=== PATIENT | female | born 1955 | race Caucasian/White ===

== ENCOUNTER 2017-03-30 09:00 | Outpatient (CLI) | payer OTHER, SELFPAY | END 2017-03-30 09:53 | disposition home or self-care (01) | PROVIDERS: Visit Provider Internal Medicine | DX: C50.911 Malignant neoplasm of unspecified site of right female breast (principal) | CPT/HCPCS: 96365; J3489 ==

== ENCOUNTER → 2017-04-21 09:53 | Outpatient (CLI) | payer OTHER, SELFPAY ==
[2017-04-21 10:12] LABS: Basophils % 0.9 % (0.1-2.0); Eosinophils # 0.4 K/mm3 (0.0-0.4); Eosinophils % 9.1 % (0.1-12.0); Hematocrit 37.9 % (37.0-47.0); Hemoglobin 12.3 g/dL (12.2-16.2); Lymphocytes # 1.5 K/mm3 (0.7-4.5); Lymphocytes % 33.1 K/mm3 (10-50); Mean Corpuscular HGB Conc 32.3 g/dL (31.8-35.4); Mean Corpuscular Volume 92.9 fl (81-99); Mean Platelet Volume 8.1 fl (7.4-10.4); Monocytes # 0.1 K/mm3 (0.1-1.0); Monocytes % 2.3 % (1.7-9.3); Neutrophils # 2.5 K/mm3 (1.8-7.8); Neutrophils % 54.6 % (37.0-80.0); Platelet Count 334 K/mm3 (142-424); Red Blood Count 4.08 M/mm3 (4.20-5.40); Red Cell Distribution Width 14.4 % (11.5-17.5); White Blood Count 4.5 K/mm3 (4.8-10.8)
[2017-04-21 13:03] LABS: Alanine Aminotransferase 25 U/L (12-78); Albumin/Globulin Ratio 1.1 (1.1-1.8); Alkaline Phosphatase 75 U/L (46-116); Anion Gap 13.1 mEq/L (5-15); Aspartate Amino Transferase 21 U/L (15-37); Bilirubin,Total 0.4 mg/dL (0.2-1.0); Blood Urea Nitrogen 18 mg/dL (7-18); Carbon Dioxide 31 mmol/L (21.0-32.0); Chloride 104 mmol/L (98-107); Creatinine,Serum 1.01 mg/dL (0.55-1.02); Estimated Glomerular Filt Rate 56 ml/min (>60); GFR (African American) 68 ML/MIN (>60); Globulin 3.6 gm/dl (1.3-3.2); Glucose 143 mg/dL (74-106); Potassium 5.1 mmoL/L (3.5-5.1); Sodium 143 mmol/L (136-145); Total Protein,Serum 7.6 gm/dL (6.4-8.2)
== END ==
PROVIDERS: PCP Internal Medicine; Visit Provider Internal Medicine
DX: C50.911 Malignant neoplasm of unspecified site of right female breast (principal)
CPT/HCPCS: 36415; 80053; 85025

== ENCOUNTER → 2017-05-07 09:16 | Outpatient (CLI) | payer OTHER, SELFPAY ==
--- NOTE | 2017-05-07 09:20 | XR_ITS ---
XR clavicle RT CLINICAL INDICATION: Follow-up clavicle fracture ITS.REASON: right clavicle fx ORDERING PHYSICIAN: Aren Perez MD PATIENT AGE: 61 years COMPARISON: 03/11/2017 FINDINGS: There is a pathologic fracture once again noted involving the distal shaft of the clavicle with further bony destruction than when compared to the previous exam. Vertical fracture line once again noted at this area. There is some sclerosis about the fracture site. No significant displacement. IMPRESSION: 1. Pathological fracture of the distal clavicle once again noted with some increasing sclerosis about the fracture site. Fracture line is still visible. 2. Increasing lucency involving the mid and distal shaft of the clavicle consistent with progression of the lytic lesion
== END ==
PROVIDERS: PCP Emergency Medicine; Visit Provider Orthopaedic Surgery
DX: M84.411D Pathological fracture, right shoulder, subsequent encounter for fracture with routine healing (principal)
CPT/HCPCS: 73000

== ENCOUNTER → 2017-05-26 10:24 | Outpatient (CLI) | payer OTHER, SELFPAY ==
[2017-05-26 10:55] LABS: Basophils # 0.1 K/mm3 (0-0.2); Eosinophils # 0.5 K/mm3 (0.0-0.4); Eosinophils % 7.8 % (0.1-12.0); Hematocrit 37.8 % (37.0-47.0); Hemoglobin 12.2 g/dL (12.2-16.2); Lymphocytes % 28.5 K/mm3 (10-50); Mean Corpuscular HGB Conc 32.4 g/dL (31.8-35.4); Mean Corpuscular Hemoglobin 29.1 pg (27.0-31.2); Mean Corpuscular Volume 89.8 fl (81-99); Mean Platelet Volume 7.8 fl (7.4-10.4); Monocytes # 0.3 K/mm3 (0.1-1.0); Monocytes % 4.8 % (1.7-9.3); Neutrophils % 57.9 % (37.0-80.0); Platelet Count 315 K/mm3 (142-424); Red Blood Count 4.21 M/mm3 (4.20-5.40); Red Cell Distribution Width 14.5 % (11.5-17.5); White Blood Count 6.9 K/mm3 (4.8-10.8)
[2017-05-26 13:01] LABS: Alanine Aminotransferase 33 U/L (12-78); Albumin Level 3.8 gm/dL (3.4-5.0); Alkaline Phosphatase 72 U/L (46-116); Anion Gap 13.6 mEq/L (5-15); Aspartate Amino Transferase 22 U/L (15-37); Bilirubin,Total 0.4 mg/dL (0.2-1.0); Blood Urea Nitrogen 16 mg/dL (7-18); Calcium 9.5 mg/dL (8.5-10.1); Carbon Dioxide 28 mmol/L (21.0-32.0); Chloride 103 mmol/L (98-107); Creatinine,Serum 0.73 mg/dL (0.55-1.02); Estimated Glomerular Filt Rate 81 ml/min (>60); GFR (African American) 98 ML/MIN (>60); Globulin 3.7 gm/dl (1.3-3.2); Glucose 92 mg/dL (74-106); Potassium 4.6 mmoL/L (3.5-5.1); Sodium 140 mmol/L (136-145); Total Protein,Serum 7.5 gm/dL (6.4-8.2)
== END ==
PROVIDERS: Visit Provider Internal Medicine
DX: C50.919 Malignant neoplasm of unspecified site of unspecified female breast (principal)
CPT/HCPCS: 36415; 80053; 85025

== ENCOUNTER → 2017-06-14 12:59 | Outpatient (CLI) | payer OTHER, SELFPAY ==
[2017-06-14 14:38] LABS: Basophils % 0.4 % (0.1-2.0); Eosinophils # 0.5 K/mm3 (0.0-0.4); Eosinophils % 6.3 % (0.1-12.0); Hematocrit 40.2 % (37.0-47.0); Lymphocytes # 2.4 K/mm3 (0.7-4.5); Lymphocytes % 30.6 K/mm3 (10-50); Mean Corpuscular HGB Conc 32.4 g/dL (31.8-35.4); Mean Corpuscular Hemoglobin 29.1 pg (27.0-31.2); Mean Corpuscular Volume 89.9 fl (81-99); Mean Platelet Volume 7.8 fl (7.4-10.4); Monocytes # 0.4 K/mm3 (0.1-1.0); Monocytes % 5.1 % (1.7-9.3); Neutrophils # 4.5 K/mm3 (1.8-7.8); Neutrophils % 57.6 % (37.0-80.0); Platelet Count 345 K/mm3 (142-424); Red Blood Count 4.47 M/mm3 (4.20-5.40); Red Cell Distribution Width 14.3 % (11.5-17.5); White Blood Count 7.8 K/mm3 (4.8-10.8)
[2017-06-14 15:28] LABS: Alanine Aminotransferase 29 U/L (12-78); Albumin Level 3.9 gm/dL (3.4-5.0); Alkaline Phosphatase 74 U/L (46-116); Anion Gap 8.8 mEq/L (5-15); Aspartate Amino Transferase 16 U/L (15-37); Bilirubin,Total 0.3 mg/dL (0.2-1.0); Blood Urea Nitrogen 15 mg/dL (7-18); Calcium 9.5 mg/dL (8.5-10.1); Carbon Dioxide 30 mmol/L (21.0-32.0); Chloride 102 mmol/L (98-107); Creatinine,Serum 0.75 mg/dL (0.55-1.02); Estimated Glomerular Filt Rate 79 ml/min (>60); GFR (African American) 95 ML/MIN (>60); Globulin 3.8 gm/dl (1.3-3.2); Glucose 98 mg/dL (74-106); Potassium 4.8 mmoL/L (3.5-5.1); Sodium 136 mmol/L (136-145); Total Protein,Serum 7.7 gm/dL (6.4-8.2)
== END ==
PROVIDERS: Visit Provider Nurse Practitioner
DX: C50.919 Malignant neoplasm of unspecified site of unspecified female breast (principal); C79.51 Secondary malignant neoplasm of bone
CPT/HCPCS: 36415; 80053; 85025

== ENCOUNTER → 2017-06-18 09:10 | Outpatient (CLI) | payer OTHER, SELFPAY ==
--- NOTE | 2017-06-18 09:14 | XR_ITS ---
XR clavicle RT COMPARISON: Right clavicle 05/07/2017 and 03/11/2017 HISTORY: Follow-up pathologic fracture TECHNIQUE: 2 views right clavicle FINDINGS: The fractures through the irregular lytic lesion of the distal clavicle is again noted. There is mild sclerosis along the fracture line indicating some attempt at healing.. However there has been interval progression of the irregular lytic lesion involving the distal clavicle particularly when compared to the previous study from 03/11/2017. There has been no change in alignment of the fracture when compared to recent films. IMPRESSION: Basically stable pathologic fracture distal right clavicle. Mildly sclerotic change along the fracture line likely indicating some degree of malunion
== END ==
PROVIDERS: Visit Provider Orthopaedic Surgery
DX: S42.001A Fracture of unspecified part of right clavicle, initial encounter for closed fracture (principal)
CPT/HCPCS: 73000

== ENCOUNTER 2017-06-29 09:17 | Outpatient (CLI) | payer OTHER, SELFPAY ==
[2017-06-29 09:46] VITALS: BP 147/82; PULSE 70; RESP 18; TEMP 36.8; O2SAT 96
[2017-06-29 10:01] VITALS: BP 142/79; PULSE 73; RESP 18; O2SAT 97
[2017-06-29 10:16] VITALS: BP 141/74; PULSE 75; RESP 18; O2SAT 96
== END 2017-06-29 10:30 | disposition home or self-care (01) ==
LOC: INF 09:17
PROVIDERS: Family Provider Nurse Practitioner Family; PCP Nurse Practitioner Family; Visit Provider Internal Medicine
DX: C50.919 Malignant neoplasm of unspecified site of unspecified female breast (principal); C79.51 Secondary malignant neoplasm of bone
CPT/HCPCS: 96365; J3489

== ENCOUNTER → 2017-07-02 09:06 | Outpatient (CLI) | payer OTHER, SELFPAY ==
--- NOTE | 2017-07-02 09:21 | NM_ITS ---
NM bone scan whole body CLINICAL INDICATION: Breast cancer, right hip pain, metastatic disease ITS.REASON: BREAST CA,RT HIP PAIN ORDERING PHYSICIAN: Pablo Rasmussen MD PATIENT AGE: 62 years DOSE: 26.3 mCi technetium MDP COMPARISON: 10/16/2014 bones can FINDINGS: There is intense increased activity involving the distal aspect of the right clavicle consistent with metastatic lesion. Small focal area of increased activity also involves the junction of the body of the sternum and manubrium on the right. There is increased activity present within both right and left aspect of T8/T9 area as before. Increased activity also noted in the mid sacrum. Increased activity is present in the right acetabular region and right ischium corresponding to a lytic lesion noted on the plain film. The previously noted focal area of increased activity in the right seventh rib is no longer apparent. There is some increased activity involving the medial aspect of the left second rib as before.. IMPRESSION: The findings are consistent with metastatic disease as before. There is new increased activity in the right hip consistent with a metastatic lesion corresponding to a lytic lesion noted on the radiograph of the right hip
--- NOTE | 2017-07-02 14:00 | XR_ITS ---
XR hip RT 2-3V w/pelvis HISTORY: Abnormal bone scan, metastatic disease, breast cancer with metastatic disease and right hip pain ORDERING PHYSICIAN: Pablo Rasmussen MD PATIENT AGE: 62 years COMPARISON: Bone scan of the same FINDINGS: There is a 2 cm sclerotic focus involving the lower aspect of the ileum on the right side with metastatic lesion. Lucent area involves the right ischium at the medial aspect of the acetabulum extending into the junction of the superior pubic ramus with the ischium and the medial aspect of the ischium at the iliopectineal line with cortical irregularity at this region. This is consistent with a metastatic focus and corresponds to an area of increased activity on the bone scan. No obvious fracture evident through this region. This is a weightbearing part of the pelvis and acetabulum. IMPRESSION: 1. Lytic lesion of the superomedial aspect of the acetabulum and junction of the ischium with the superior pubic ramus consistent with metastatic focus. No obvious fracture. 2. Sclerotic lesion of the ileum inferiorly on the right consistent with metastatic focus
== END ==
PROVIDERS: Family Provider Nurse Practitioner Family; Visit Provider Internal Medicine
DX: C50.919 Malignant neoplasm of unspecified site of unspecified female breast (principal); M25.551 Pain in right hip
CPT/HCPCS: 73502; 78306; A9503

== ENCOUNTER → 2017-07-21 13:45 | Outpatient (CLI) | payer OTHER, SELFPAY ==
[2017-07-21 14:40] LABS: Basophils % 0.6 % (0.1-2.0); Eosinophils # 0.2 K/mm3 (0.0-0.4); Eosinophils % 2.9 % (0.1-12.0); Hematocrit 39.3 % (37.0-47.0); Hemoglobin 12.4 g/dL (12.2-16.2); Lymphocytes % 32.4 K/mm3 (10-50); Mean Corpuscular HGB Conc 31.6 g/dL (31.8-35.4); Mean Corpuscular Hemoglobin 28.1 pg (27.0-31.2); Mean Corpuscular Volume 88.7 fl (81-99); Mean Platelet Volume 7.3 fl (7.4-10.4); Monocytes # 0.4 K/mm3 (0.1-1.0); Monocytes % 6.3 % (1.7-9.3); Neutrophils # 3.5 K/mm3 (1.8-7.8); Neutrophils % 57.8 % (37.0-80.0); Platelet Count 316 K/mm3 (142-424); Red Blood Count 4.43 M/mm3 (4.20-5.40); White Blood Count 6.1 K/mm3 (4.8-10.8)
[2017-07-21 14:54] LABS: Alanine Aminotransferase 23 U/L (12-78); Albumin Level 3.7 gm/dL (3.4-5.0); Alkaline Phosphatase 100 U/L (46-116); Anion Gap 11.8 mEq/L (5-15); Aspartate Amino Transferase 23 U/L (15-37); Bilirubin,Total 0.3 mg/dL (0.2-1.0); Blood Urea Nitrogen 15 mg/dL (7-18); Calcium 9.3 mg/dL (8.5-10.1); Carbon Dioxide 30 mmol/L (21.0-32.0); Chloride 108 mmol/L (98-107); Creatinine,Serum 0.87 mg/dL (0.55-1.02); Estimated Glomerular Filt Rate 66 ml/min (>60); GFR (African American) 80 ML/MIN (>60); Globulin 3.7 gm/dl (1.3-3.2); Glucose 122 mg/dL (74-106); Potassium 4.8 mmoL/L (3.5-5.1); Sodium 145 mmol/L (136-145); Total Protein,Serum 7.4 gm/dL (6.4-8.2)
== END ==
PROVIDERS: Visit Provider Nurse Practitioner
DX: C50.919 Malignant neoplasm of unspecified site of unspecified female breast (principal); M25.551 Pain in right hip
CPT/HCPCS: 36415; 80053; 85025

== ENCOUNTER → 2017-09-22 10:17 | Outpatient (CLI) | payer OTHER, SELFPAY ==
[2017-09-22 10:46] LABS: Basophils % 0.6 % (0.1-2.0); Eosinophils # 0.1 K/mm3 (0.0-0.4); Eosinophils % 2.2 % (0.1-12.0); Hemoglobin 12.6 g/dL (12.2-16.2); Lymphocytes # 1.8 K/mm3 (0.7-4.5); Mean Corpuscular HGB Conc 30.7 g/dL (31.8-35.4); Mean Corpuscular Hemoglobin 26.7 pg (27.0-31.2); Mean Corpuscular Volume 87.1 fl (81-99); Mean Platelet Volume 7.4 fl (7.4-10.4); Monocytes # 0.3 K/mm3 (0.1-1.0); Monocytes % 4.5 % (1.7-9.3); Neutrophils # 3.7 K/mm3 (1.8-7.8); Neutrophils % 62.8 % (37.0-80.0); Platelet Count 296 K/mm3 (142-424); Red Blood Count 4.71 M/mm3 (4.20-5.40); Red Cell Distribution Width 16.5 % (11.5-17.5); White Blood Count 5.8 K/mm3 (4.8-10.8)
[2017-09-22 12:09] LABS: Alanine Aminotransferase 30 U/L (12-78); Albumin Level 3.9 gm/dL (3.4-5.0); Albumin/Globulin Ratio 1.1 (1.1-1.8); Alkaline Phosphatase 130 U/L (46-116); Anion Gap 14.6 mEq/L (5-15); Aspartate Amino Transferase 30 U/L (15-37); Bilirubin,Total 0.7 mg/dL (0.2-1.0); Blood Urea Nitrogen 13 mg/dL (7-18); Calcium 9.5 mg/dL (8.5-10.1); Carbon Dioxide 28 mmol/L (21.0-32.0); Chloride 103 mmol/L (98-107); Creatinine,Serum 0.72 mg/dL (0.55-1.02); Estimated Glomerular Filt Rate 82 ml/min (>60); GFR (African American) 100 ML/MIN (>60); Globulin 3.6 gm/dl (1.3-3.2); Glucose 121 mg/dL (74-106); Potassium 4.6 mmoL/L (3.5-5.1); Sodium 141 mmol/L (136-145); Total Protein,Serum 7.5 gm/dL (6.4-8.2)
== END ==
PROVIDERS: Visit Provider Internal Medicine
DX: C50.911 Malignant neoplasm of unspecified site of right female breast (principal)
CPT/HCPCS: 36415; 80053; 85025

== ENCOUNTER 2017-09-28 08:55 | Outpatient (CLI) | payer OTHER, SELFPAY ==
[2017-09-28 09:22] VITALS: BP 150/82; PULSE 76; RESP 18; TEMP 36.9; O2SAT 98
[2017-09-28 09:45] VITALS: BP 153/85; PULSE 72; RESP 18; TEMP 36.8; O2SAT 96
== END 2017-09-28 09:50 | disposition home or self-care (01) ==
LOC: INF 09:13
PROVIDERS: Family Provider Nurse Practitioner Family; PCP Internal Medicine; Visit Provider Internal Medicine
DX: C50.919 Malignant neoplasm of unspecified site of unspecified female breast (principal); C79.51 Secondary malignant neoplasm of bone
CPT/HCPCS: 96365; J3489

== ENCOUNTER 2017-11-03 11:00 | Outpatient (CLI) | payer OTHER, SELFPAY ==
[2017-11-03] VITALS (18 sets, daily range): BP systolic 133–168; BP diastolic 62–78; PULSE 68–87; RESP 18–20; TEMP 36.2; O2SAT 97; BMI 33.6
[2017-11-03 11:17] LABS: Basophils % 0.5 % (0.1-2.0); Eosinophils # 0.1 K/mm3 (0.0-0.4); Eosinophils % 2.1 % (0.1-12.0); Hematocrit 36.1 % (37.0-47.0); Hemoglobin 11.5 g/dL (12.2-16.2); Lymphocytes # 1.9 K/mm3 (0.7-4.5); Lymphocytes % 28.2 K/mm3 (10-50); Mean Corpuscular HGB Conc 31.9 g/dL (31.8-35.4); Mean Corpuscular Hemoglobin 26.5 pg (27.0-31.2); Mean Corpuscular Volume 83.1 fl (81-99); Mean Platelet Volume 7.4 fl (7.4-10.4); Monocytes # 0.4 K/mm3 (0.1-1.0); Monocytes % 5.6 % (1.7-9.3); Neutrophils # 4.3 K/mm3 (1.8-7.8); Neutrophils % 63.6 % (37.0-80.0); Platelet Count 369 K/mm3 (142-424); Red Blood Count 4.34 M/mm3 (4.20-5.40); Red Cell Distribution Width 15.2 % (11.5-17.5); White Blood Count 6.7 K/mm3 (4.8-10.8)
== END 2017-11-03 16:45 | disposition home or self-care (01) ==
LOC: INF 11:00
PROVIDERS: Family Provider Nurse Practitioner Family; PCP Internal Medicine; Visit Provider Internal Medicine
DX: Z51.11 Encounter for antineoplastic chemotherapy (principal); C50.919 Malignant neoplasm of unspecified site of unspecified female breast; C79.51 Secondary malignant neoplasm of bone
CPT/HCPCS: 85025; 96413; 96415; 96417; J9201; J9267; Q0166

== ENCOUNTER 2017-11-11 09:40 | Outpatient (CLI) | payer OTHER, SELFPAY ==
[2017-11-11] VITALS (9 sets, daily range): BP systolic 129–143; BP diastolic 62–84; PULSE 71–84; RESP 16–18; TEMP 36.6; O2SAT 96; BMI 32.9
[2017-11-11 09:59] LABS: Basophils % 0.6 % (0.1-2.0); Eosinophils % 0.9 % (0.1-12.0); Hematocrit 35.6 % (37.0-47.0); Hemoglobin 11.5 g/dL (12.2-16.2); Lymphocytes # 1.7 K/mm3 (0.7-4.5); Lymphocytes % 34.3 K/mm3 (10-50); Mean Corpuscular HGB Conc 32.3 g/dL (31.8-35.4); Mean Corpuscular Hemoglobin 26.5 pg (27.0-31.2); Mean Platelet Volume 7.3 fl (7.4-10.4); Monocytes # 0.3 K/mm3 (0.1-1.0); Monocytes % 5.9 % (1.7-9.3); Neutrophils # 2.8 K/mm3 (1.8-7.8); Neutrophils % 58.3 % (37.0-80.0); Platelet Count 297 K/mm3 (142-424); Red Blood Count 4.34 M/mm3 (4.20-5.40); Red Cell Distribution Width 15.3 % (11.5-17.5); White Blood Count 4.9 K/mm3 (4.8-10.8)
== END 2017-11-11 13:00 | disposition home or self-care (01) ==
LOC: INF 09:40
PROVIDERS: Family Provider Nurse Practitioner Family; PCP Internal Medicine; Visit Provider Internal Medicine
DX: Z51.11 Encounter for antineoplastic chemotherapy (principal); C50.919 Malignant neoplasm of unspecified site of unspecified female breast; C79.51 Secondary malignant neoplasm of bone
CPT/HCPCS: 85025; 96413; 96415; 96417; J9201; J9267; Q0166

== ENCOUNTER 2017-11-19 08:50 | Outpatient (CLI) | payer OTHER, SELFPAY ==
[2017-11-19] VITALS (7 sets, daily range): BP systolic 132–155; BP diastolic 72–94; PULSE 64–84; RESP 16; TEMP 36.6; BMI 32.5
[2017-11-19 09:33] LABS: Basophils % 0.5 % (0.1-2.0); Eosinophils # 0.1 K/mm3 (0.0-0.4); Eosinophils % 1.4 % (0.1-12.0); Hematocrit 33.3 % (37.0-47.0); Hemoglobin 10.5 g/dL (12.2-16.2); Lymphocytes # 1.5 K/mm3 (0.7-4.5); Lymphocytes % 35.4 K/mm3 (10-50); Mean Corpuscular HGB Conc 31.7 g/dL (31.8-35.4); Mean Corpuscular Hemoglobin 26.3 pg (27.0-31.2); Mean Corpuscular Volume 82.9 fl (81-99); Mean Platelet Volume 7.5 fl (7.4-10.4); Monocytes # 0.3 K/mm3 (0.1-1.0); Monocytes % 8.4 % (1.7-9.3); Neutrophils # 2.2 K/mm3 (1.8-7.8); Neutrophils % 54.3 % (37.0-80.0); Platelet Count 339 K/mm3 (142-424); Red Blood Count 4.01 M/mm3 (4.20-5.40); Red Cell Distribution Width 16.6 % (11.5-17.5); White Blood Count 4.1 K/mm3 (4.8-10.8)
== END 2017-11-19 12:15 | disposition home or self-care (01) ==
LOC: INF 09:02
PROVIDERS: Family Provider Nurse Practitioner Family; PCP Internal Medicine; Visit Provider Internal Medicine
DX: Z51.11 Encounter for antineoplastic chemotherapy (principal); C50.919 Malignant neoplasm of unspecified site of unspecified female breast
CPT/HCPCS: 85025; 96413; 96415; 96417; J9201; J9267; Q0166

== ENCOUNTER 2017-12-02 10:34 | Outpatient (CLI) | payer OTHER, SELFPAY ==
[2017-12-02 10:21] VITALS: BMI 34.4
--- NOTE | 2017-12-02 10:45 | CT_ITS ---
CT chest w con HISTORY: Follow-up breast cancer ITS.REASON: BREAST CA ORDERING PHYSICIAN: Pablo Rasmussen MD PATIENT AGE: 62 years COMPARISON: 06/27/2015 TECHNIQUE: Axial images obtained following the administration of 75 mL of Isovue 370 . Sagittal, and coronal reformatted images are also generated and reviewed. All CT scans at the facility use one or more dose reduction, viz: automated exposure control, ma/kV adjustment per patient size (including targeted exams where dose is matched to indication, i.e. head), or iterative reconstruction technique. FINDINGS: No mediastinal or hilar mass or adenopathy is evident. There is normal heart size with no evidence of pericardial effusion. There are numerous noncalcified pulmonary nodules of varying size which is increased in number and size since the previous exam consistent with progression of metastatic disease. Largest nodule on the left is in the lingula and measures 13 mm previously measuring 6 mm. Numerous bony destructive lesions are present including the mid and distal aspect of the clavicle on the right and the T9 vertebral body is severe wedge compression changes of T9. These 2 lesions were present previously. Lesion of the right clavicle has shown some increased destruction in expansion. The pathologic compression fracture at T9 is not significant change. There is a new lesion involving the T8 vertebral body posteriorly on the right are present in a lytic lesion. A new lucent lesion is present in the superior endplate of T11. This could represent a Schmorl's node having well-circumscribed margins. There are scattered small sclerotic foci in the vertebral bodies similar to the previous exam. There is a new destructive lesion involving the inferior aspect of the body of the sternum. Sclerotic lesion involves the proximal aspect of the humerus on the left at the neck of the humerus. There are postsurgical changes of the left breast and prior mastectomy. Increased soft tissue density is present along the anterior chest wall the left similar to the previous exam. There is some increase in underlying skin thinning which may be due to postradiation changes. A 15 mm nodular opacity is present in the upper outer aspect of the left breast not significant change consistent with scarring. IMPRESSION: 1. Progression of pulmonary metastasis. 2. Multiple lytic and blastic lesions of the chest as described above which have also shown progression compared to the previous exam consistent with progression of bony metastasis
--- NOTE | 2017-12-02 10:45 | CT_ITS ---
CT abdomen pelvis w con CLINICAL INDICATION: Follow-up metastatic breast cancer ITS.REASON: BREAST CA ORDERING PHYSICIAN: Pablo Rasmussen MD PATIENT AGE: 62 years COMPARISON: 06/27/2015 TECHNIQUE: Axial images obtained with sagittal and coronal reformats. All CT scans at the facility use one or more dose reduction, viz: automated exposure control, ma/kV adjustment per patient size (including targeted exams where dose is matched to indication, i.e. head), or iterative reconstruction technique. PROCEDURE: Oral Contrast: Redicat IV Contrast: 75 mL's of Isovue-370. FINDINGS: The liver, spleen, adrenal glands, pancreas, and left kidney have an unremarkable appearance. The gallbladder is distended and contains a large stone measures 3 cm. No biliary dilatation apparent. There is an 18 mm right renal cyst. No abdominal mass or adenopathy is evident. The appendix is unremarkable. No evidence of diverticulitis. No intestinal obstruction or free air. No adenopathy. A lucency is present within the inferior aspect of the L3 vertebral body unchanged well circumscribed with sclerotic margins consistent with a prominent Schmorl's node. A small sclerotic focus involves L2 vertebral body on the left unchanged. There is a small sclerotic focus involving the L4 vertebral body superiorly unchanged. A sclerotic focus is also present in the right aspect of the sacrum. An aggressive lytic process involves the right hemipelvis with extensive involvement of the right superior pubic ramus and right inferior pubic ramus. Extensive lytic process involves the right ischium and acetabulum involving the medial and superior wall of the acetabulum extending into the in inferior aspect of the ileum. There is a nondisplaced fracture involving the superior wall of the acetabulum consistent with a pathologic fracture. There is likely a nondisplaced pathologic fracture through the medial aspect of the superior pubic ramus in the central aspect of the inferior pubic ramus. There is a right hip joint effusion. Sclerosis involves the sacrum as before consistent with an old metastatic lesion without progression compared to the previous exam. Lytic lesion involves the symphysis pubis on the right. IMPRESSION: 1. Progression of bony metastasis with aggressive lytic process involving the right hemipelvis as described above involving acetabulum with a nondisplaced pathologic fracture through the roof of the acetabulum and nondisplaced pathologic fracture of the superior and inferior pubic ramus on the right. Other bony lesions noted as described above are not significantly changed. 2. No evidence of hepatic metastasis. 3. Cholelithiasis.
[2017-12-02 10:49] LABS: Basophils % 0.7 % (0.1-2.0); Eosinophils # 0.1 K/mm3 (0.0-0.4); Eosinophils % 1.3 % (0.1-12.0); Hematocrit 33.1 % (37.0-47.0); Hemoglobin 10.8 g/dL (12.2-16.2); Lymphocytes # 1.6 K/mm3 (0.7-4.5); Lymphocytes % 29.2 K/mm3 (10-50); Mean Corpuscular HGB Conc 32.5 g/dL (31.8-35.4); Mean Corpuscular Hemoglobin 27.2 pg (27.0-31.2); Mean Corpuscular Volume 83.6 fl (81-99); Mean Platelet Volume 7.1 fl (7.4-10.4); Monocytes # 0.5 K/mm3 (0.1-1.0); Monocytes % 8.8 % (1.7-9.3); Neutrophils # 3.2 K/mm3 (1.8-7.8); Platelet Count 364 K/mm3 (142-424); Red Blood Count 3.96 M/mm3 (4.20-5.40); Red Cell Distribution Width 18.2 % (11.5-17.5); White Blood Count 5.4 K/mm3 (4.8-10.8)
[2017-12-02 11:21] LABS: Anion Gap 10.1 mEq/L (5-15); Blood Urea Nitrogen 6 mg/dL (7-18); Calcium 9.3 mg/dL (8.5-10.1); Carbon Dioxide 29 mmol/L (21.0-32.0); Chloride 102 mmol/L (98-107); Creatinine Clearance Estimated 85 mL/min (0-300); Creatinine,Serum 0.74 mg/dL (0.55-1.02); Estimated Glomerular Filt Rate 80 ml/min (>60); GFR (African American) 97 ML/MIN (>60); Glucose 102 mg/dL (74-106); Potassium 4.1 mmoL/L (3.5-5.1); Sodium 137 mmol/L (136-145)
[2017-12-02 13:10] VITALS: BP 151/80; PULSE 83; RESP 18; TEMP 36.6; O2SAT 98
[2017-12-02 13:40] VITALS: BP 145/79; PULSE 84; RESP 18; O2SAT 97
[2017-12-02 14:10] VITALS: BP 146/76; PULSE 81; RESP 18; O2SAT 97
[2017-12-02 14:29] VITALS: BP 137/76; PULSE 84; RESP 18; O2SAT 96
[2017-12-02 14:59] VITALS: BP 145/73; PULSE 66; RESP 18; O2SAT 97
[2017-12-02 15:20] VITALS: BP 145/72; PULSE 85; RESP 18; O2SAT 98
== END 2017-12-02 15:25 | disposition home or self-care (01) ==
LOC: RAD 10:34
PROVIDERS: Family Provider Nurse Practitioner Family; PCP Internal Medicine; Visit Provider Internal Medicine
DX: C50.912 Malignant neoplasm of unspecified site of left female breast (principal)
CPT/HCPCS: 71260; 74177; 80048; 85025; 96413; 96415; 96417; J9201; J9267; Q0166; Q9967

== ENCOUNTER 2017-12-08 11:25 | Outpatient (CLI) | payer OTHER, SELFPAY ==
[2017-12-08 11:28] VITALS: BMI 34.4
[2017-12-08 11:53] LABS: Basophils % 1.1 % (0.1-2.0); Eosinophils # 0.1 K/mm3 (0.0-0.4); Eosinophils % 1.8 % (0.1-12.0); Hematocrit 34.2 % (37.0-47.0); Lymphocytes # 1.5 K/mm3 (0.7-4.5); Lymphocytes % 36.5 K/mm3 (10-50); Mean Corpuscular HGB Conc 32.3 g/dL (31.8-35.4); Mean Corpuscular Hemoglobin 26.6 pg (27.0-31.2); Mean Corpuscular Volume 82.5 fl (81-99); Mean Platelet Volume 7.3 fl (7.4-10.4); Monocytes # 0.2 K/mm3 (0.1-1.0); Monocytes % 5.2 % (1.7-9.3); Neutrophils # 2.3 K/mm3 (1.8-7.8); Neutrophils % 55.5 % (37.0-80.0); Platelet Count 422 K/mm3 (142-424); Red Blood Count 4.15 M/mm3 (4.20-5.40); Red Cell Distribution Width 17.9 % (11.5-17.5); White Blood Count 4.1 K/mm3 (4.8-10.8)
[2017-12-08 12:04] LABS: Alanine Aminotransferase 392 U/L (12-78); Albumin Level 3.6 gm/dL (3.4-5.0); Albumin/Globulin Ratio 0.8 (1.1-1.8); Alkaline Phosphatase 240 U/L (46-116); Anion Gap 13.5 mEq/L (5-15); Aspartate Amino Transferase 304 U/L (15-37); Bilirubin,Total 1.2 mg/dL (0.2-1.0); Blood Urea Nitrogen 13 mg/dL (7-18); Calcium 10.2 mg/dL (8.5-10.1); Carbon Dioxide 28 mmol/L (21.0-32.0); Chloride 100 mmol/L (98-107); Creatinine Clearance Estimated 85 mL/min (0-300); Creatinine,Serum 0.84 mg/dL (0.55-1.02); Estimated Glomerular Filt Rate 69 ml/min (>60); GFR (African American) 83 ML/MIN (>60); Globulin 4.6 gm/dl (1.3-3.2); Glucose 101 mg/dL (74-106); Potassium 4.5 mmoL/L (3.5-5.1); Sodium 137 mmol/L (136-145); Total Protein,Serum 8.2 gm/dL (6.4-8.2)
== END 2017-12-08 14:24 | disposition home or self-care (01) ==
LOC: INF 11:42
PROVIDERS: Family Provider Nurse Practitioner Family; PCP Internal Medicine; Visit Provider Internal Medicine
DX: Z51.11 Encounter for antineoplastic chemotherapy (principal); C50.919 Malignant neoplasm of unspecified site of unspecified female breast; C79.51 Secondary malignant neoplasm of bone
CPT/HCPCS: 80053; 85025

== ENCOUNTER → 2018-02-10 14:47 | Outpatient (CLI) | payer OTHER, SELFPAY ==
[2018-02-10 15:10] LABS: Basophils # 0.1 K/mm3 (0-0.2); Basophils % 0.7 % (0.1-2.0); Eosinophils # 0.1 K/mm3 (0.0-0.4); Eosinophils % 1.7 % (0.1-12.0); Hematocrit 39.5 % (37.0-47.0); Hemoglobin 12.9 g/dL (12.2-16.2); Lymphocytes # 2.5 K/mm3 (0.7-4.5); Lymphocytes % 30.6 K/mm3 (10-50); Mean Corpuscular HGB Conc 32.8 g/dL (31.8-35.4); Mean Corpuscular Hemoglobin 26.1 pg (27.0-31.2); Mean Corpuscular Volume 79.6 fl (81-99); Mean Platelet Volume 7.4 fl (7.4-10.4); Monocytes # 0.5 K/mm3 (0.1-1.0); Monocytes % 5.8 % (1.7-9.3); Neutrophils # 4.9 K/mm3 (1.8-7.8); Neutrophils % 61.2 % (37.0-80.0); Platelet Count 345 K/mm3 (142-424); Red Blood Count 4.96 M/mm3 (4.20-5.40); Red Cell Distribution Width 14.8 % (11.5-17.5); White Blood Count 8.1 K/mm3 (4.8-10.8)
[2018-02-10 16:49] LABS: Alanine Aminotransferase 20 U/L (12-78); Albumin Level 3.9 gm/dL (3.4-5.0); Alkaline Phosphatase 146 U/L (46-116); Aspartate Amino Transferase 31 U/L (15-37); Blood Urea Nitrogen 10 mg/dL (7-18); Calcium 10.1 mg/dL (8.5-10.1); Carbon Dioxide 29 mmol/L (21.0-32.0); Chloride 99 mmol/L (98-107); Creatinine,Serum 0.81 mg/dL (0.55-1.02); Estimated Glomerular Filt Rate 72 ml/min (>60); GFR (African American) 87 ML/MIN (>60); Globulin 3.8 gm/dl (1.3-3.2); Glucose 91 mg/dL (74-106); Sodium 138 mmol/L (136-145); Total Protein,Serum 7.7 gm/dL (6.4-8.2)
[2018-02-10 17:13] LABS: Bilirubin,Total 0.7 mg/dL (0.2-1.0)
== END ==
PROVIDERS: Visit Provider Internal Medicine Medical Oncology
DX: C50.919 Malignant neoplasm of unspecified site of unspecified female breast (principal); C79.51 Secondary malignant neoplasm of bone
CPT/HCPCS: 36415; 80053; 85025

== ENCOUNTER 2019-08-29 13:59 | Observation (INO) | payer OTHER, SELFPAY ==
[2019-08-29 14:36] VITALS: BP 125/82; PULSE 109; RESP 18; TEMP 36.6; O2SAT 96
--- NOTE | 2019-08-29 14:44 | SW/DCPLANNER ---
I have spoke with Deann from Hospice regarding this patient. Deann has stated that Hospice has delivered patients O2 concentrator and patient is under Hospice Care at [facility]. I will continue to follow up with Deann regarding this patient.
--- NOTE | 2019-08-29 19:12 | PC.NURSE ---
report given to luis alberto
[2019-08-29 19:37] VITALS: BP 117/73; PULSE 96; RESP 17; TEMP 36.4; O2SAT 97
--- NOTE | 2019-08-29 19:50 | PC.NURSE ---
WHILE THIS RN WAS RECEIVING REPORT FROM [facility] CONTINUITY TESTER, CONTINUITY TESTER INFORMED THIS RN THAT PATIENT IS ALLOWED TO HAVE UP TO 8 VISITORS. THIS RN INFORMED HER THAT IT IS ONLY 4 VISITORS AT A TIME. GARTH HANSEN STATED THAT CARE MANAGEMENT TOLD HER AND THE FAMILY THAT 8 WERE ALLOWED. THIS RN PHONED [facility] RN, PER [facility], PATIENT IS OKAY TO HAVE 8 VISITORS AT A TIME. THIS RN PHONED CONTINUITY TESTER AND INFORMED HER THAT 8 VISITORS ARE ALLOWED. PATIENT ARRIVED ON FLOOR, THIS RN ATTEMPTED TO ASSESS PATIENT'S SKIN. PATIENT REFUSED TO BE TURNED. THIS RN AND MARNI TORREZ RN CHANGED PATIENT'S BRIEF BY LIFTING PATIENT'S BY HIP AND LEGS AND REMOVING BRIEF AND SLIDING AN NEW ONE UNDER. PER GRANDDAUGHTER, THIS IS HOW WE DO IT AT HOME. THIS RN COUNTED MEDICATIONS AND STORED IN MED DRAWER ALONG WITH MAR PROVIDED BY PHARMACY.
--- NOTE | 2019-08-30 03:43 | PC.NURSE ---
A&OX4. PT TOLERATING 2LNC WELL. PT IN BED ENTIRETY OF SHIFT. PT HAS HAD NO C/O PAIN, NA/VO/DI. PT RECEIVING MORPHINE PER MAR. PT REFUSES TO BE TURNED AND DAILY CARE (ORAL CARE AND BATH.) NO OTHER COMPLAINTS THUS FAR, PT FAMILY AT BEDSIDE. VSS WILL CONTINUE TO MONITOR.
[2019-08-30 07:37] VITALS: BP 115/68; PULSE 94; RESP 16; TEMP 36.6; O2SAT 96
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
--- NOTE | 2019-08-30 10:58 | SW/DCPLANNER ---
Deann Puentes with Hospice has been here to evaluate this patient.
--- NOTE | 2019-08-30 12:33 | PC.NURSE ---
ATTEMPTED TO CHANGE DRESSING. PATIENT REQUEST TO WAIT UNTIL LATER
--- NOTE | 2019-08-30 15:37 | PC.NURSE ---
CALLED HOSPICE NURSE PER FAMILY REQUEST. THEY STATE PATIENT SEEMS TO HAVE DECLINED SINCE THIS AM.
--- NOTE | 2019-08-30 17:29 | PC.NURSE ---
DAUGHTER CHANGED PATIENTS DRESSING ON BREAST. HOSPICE NURSE CAME TO VISIT WITH PATIENT AND FAMILY. SHE STATES THAT PATIENT DOES SEEM TO BE DECLINING. THE HOPE IS TO GET THE PATIENT BACK HOME WITH FAMILY TOMORROW. CALL LIGHT WITHIN REACH WILL CONTINUE TO MONITOR
--- NOTE | 2019-08-30 19:10 | PC.NURSE ---
report given to kirsty
[2019-08-30 20:00] VITALS: BP 125/77; PULSE 94; RESP 18; TEMP 36.7; O2SAT 97
[2019-08-30 22:12] VITALS: O2SAT 96
--- NOTE | 2019-08-31 00:23 | PC.NURSE ---
Pt alert to self, awakens to touch, answers, Yeah or shakes head no. Nothing acute noted, lung peguero diminished, bowel sounds active, extremities warm, no mottling, pulses strong and equal in all extremities. Pt takes pain med without difficulty with prompting, breathing is shallow but unchanged thus far, monitoring continues.
--- NOTE | 2019-08-31 04:38 | PC.NURSE ---
Awakens to touch, shaking head yes and no to questions, oral care given every two hours as needed, Morphine every 4 hours given without difficulty, pt swallows well even though family reports not to move her head or raise her up in the bed. Pt resting with respirations averaging 12-16 since midnight, niece sleeping at bedside, monitoring continues.
[2019-08-31 08:00] VITALS: BP 100/65; PULSE 97; RESP 17; RESP 8; TEMP 36.4; O2SAT 95
--- NOTE | 2019-08-31 08:34 | PC.NURSE ---
Pt daughter's request, RN is holding scheduled morphine dose for 0800 for now. Pt shows no nonverbal s/sx of distress at this time, RR 8 and deep.
--- NOTE | 2019-08-31 13:40 | PC.NURSE ---
Pt continues to be mostly unresponsive, but did have one episode of wakefulness. During this period of time, pt asked for water, denied pain, and called for Cornelius, who is not present at bedside. Other family members continue to hover at bedside and remain intermittently tearful. Pt shows no nonverbal s/sx of distress thus far during the shift. Family continues to decline turning and bathing of patient.
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
--- NOTE | 2019-08-31 16:20 | PC.NURSE ---
Pt again declines pain medication at this time as pt exhibits no nonverbal s/sx of pain or distress. Pt didn't awaken for approximately 2 minutes saying there were people in the room talking. These people did not include those present at the bedside. Oral care was provided this shift approximately every 2 hours. Family continues to decline turning and bathing. Hospice nurse visited at 1500 and told RN and family that dressing change was not needed this day. RN/family verbalized understanding. Plan will be to change dressing tomorrow per daughter.
--- NOTE | 2019-08-31 17:13 | PC.NURSE ---
Spoke with Amrik at Hospice regarding thrush noted on tongue. Amrik declines treatment of thrush at this time. Pain medication was administered per Amrik's recommendation.
[2019-08-31 19:51] VITALS: BP 103/62; PULSE 94; RESP 10; TEMP 36.9; O2SAT 96
--- NOTE | 2019-09-01 03:35 | PC.NURSE ---
No acute changes this shift. Pain medication given every four hours per order. Respirations 10 to 12 per minute. Family will not allow pt to be bathed or any repositioning. Offered care several times, ask to change pt's shirt, family replied, She likes that shirt so we aren't changing it. Daily left chest dressing usually changed by family, however family did not change dressing yesterday. Advised I could change the dressing, family reported they would change it tomorrow and did not want it changed this shift. Pt is arouses for medication opening both eyes, deliberate swallowing on cue. Pt sticking out her tongue, appears to have some thrush on tongue, oral care given with each encounter. Body temperature equal in all peripheries, pulses palpable and strong, no mottling noted. Family remains at bedside, monitoring continues.
--- NOTE | 2019-09-01 04:52 | PC.NURSE ---
Addendum entered by Rachna Mckoy RN 09/01/19 04:59: Hospice nurse phoned back to advise to alert her when pt passes. Addendum entered by Rachna Mckoy RN 09/01/19 04:57: Contacted [facility]. Nurse, Ana who will call back. Original Note: Pt's breathing changed to deep and 4 times a minute. With several attempts able to speak to Rayna Dumont who reported she will be right here. Alerted ER registration, visitors will be arriving.
--- NOTE | 2019-09-01 06:42 | PC.NURSE ---
Family at bedside, comfort cart given, chairs provided. Pt's breathing continues to change, slow then fast, monitoring continues.
--- NOTE | 2019-09-01 07:58 | PC.NURSE ---
morphine scheduled for 0800. when asking family if they wanted it given at this time they stated to not give at this time.
--- NOTE | 2019-09-01 11:08 | SW/DCPLANNER ---
Deann Puentes has stated that this patient will continue under Hospice respite care. Hospice will continue to follow this patient.
--- NOTE | 2019-09-01 16:55 | PC.NURSE ---
patient continues to be minimally responsive. continuing medication q4h per hospice. family refusing turns, vitals and dressing change. instructed family to let nursing know if they change mind and wish for turns/oral care and baths. family at bedside. will continue to monitor. .
[2019-09-01 20:00] VITALS: BP 98/59; PULSE 103; RESP 6; RESP 8; TEMP 36.7; O2SAT 95
[2019-09-01 23:30] VITALS: O2SAT 96
--- NOTE | 2019-09-02 03:22 | PC.NURSE ---
PT HAS HAD NO ACUTE CHANGES THIS SHIFT. PT HAS CONTINUED TO BE UNRESPONSIVE T/O SHIFT. PT BREATHING IS UNLABORED AND EVEN, 6-8 BREATHS/MINUTE. PT TOLERATING 2LNC WELL. PT FAMILY AT BEDSIDE, REQUESTING THAT THE PT BE LEFT ALONE TO REST T/O SHIFT. VS X1. MORPHINE GIVEN Q4H PER JUN. PT TOLERATED WELL. ORAL CARE PROVIDED. PT SKIN WAS VERY WARM TO TOUCH T/O THIS SHIFT. NO COMPLAINTS THUS FAR, WILL CONTINUE TO MONITOR PT.
[2019-09-02 07:31] VITALS: BP 100/54; PULSE 91; RESP 20; TEMP 36.8; O2SAT 96
[2019-09-02 08:00] VITALS: RESP 8
[2019-09-02 08:12] VITALS: BMI 17.7
--- NOTE | 2019-09-02 08:37 | PC.NURSE ---
THIS RN IS IN PATIENT'S ROOM FOR MEDICATION ADMINISTRATION AND ASSESSMENT. PATIENT'S DAUGHTER ENTERED ROOM TO CHANGE PATIENT'S SURGICAL SITE. PATIENT'S DAUGHTER INFORMED THIS RN THAT PATIENT'S SITE HAD GREEN OOZE COMING OUT YESTERDAY. THIS RN ASKED THE DAUGHTER TO CLEAN WHILE RN IS IN ROOM. DRESSING REMOVED, LARGE AMOUNT OF CLOTTED BLOOD COVERED SITE AND FOUL ODOR NOTED. THIS RN HAD PATIENT'S DAUGHTER PHONE HOSPICE AND REPORT FINDINGS. OIL BURNER JOURNEYMAN PHONED THIS RN BACK. THIS RN REPORTED FINDINGS OF WOUND AND THAT PATIENT IS UNABLE TO SWALLOW MORPHINE. OIL BURNER JOURNEYMAN STATED TO CONTINUE TO PROVIDE MORPHINE, ADMINISTER UNDER TONGUE AND TO CLEAN WOUND USUAL AND RN WILL BE IN AT [facility] IN A COUPLE OF HOURS. THIS RN PAGED DR. GOMEZ WHO IS DIRECTOR FUNDRAISING FOR DR. CORTES. STATED TO PROVIDE CHLORHEXIDINE AND HAVE FAMILY CHANGED DRESSING 2X A DAY. THIS RN INSTRUCTED PATIENT'S DAUGHTER OF NEW ORDER AND PROVIDED CHLORHEXIDINE. DAUGHTER VERBALIZED AN UNDERSTANDING.
--- NOTE | 2019-09-02 10:28 | HMH.ACPN2 ---
Internal Medicine - PN: Subj *Date: 09/02/19 *Time: 10:28 Interval history: Called patient's room per staff was changing wound to left breast which was oozing and had quarter size blood clots. Staff also stated small sore and redness under right shoulder due to patient refusing to move the head any other way and chin laying against shoulder. Family states we are treating and caring for these wounds at home and they look no different than previous. Exam Vital signs and Labs for Last 24 Hours: Temp Pulse Resp BP Pulse Ox 98.3 F 91 H 20 100/54 L 96 09/02/19 07:31 09/02/19 07:31 09/02/19 07:31 09/02/19 07:31 09/02/19 07:31 I & O for Last 24 hours: Intake & Output 08/30/19 08/31/19 09/01/19 09/02/19 11:59 11:59 11:59 11:59 Intake Total 50 / 50 50 / 50 100 / 100 0 / 0 Balance 50 / 50 50 / 50 100 / 100 0 / 0 Weight 97 lb 4 oz - Constitutional thin, chronically ill appearing - *Routine HEENT Exam Head: Present: normocephalic ENT: Present: mucous membranes moist - *Routine Neck Exam Present: supple. Absent: lymphadenopathy Comments: Patient favors right side - *Routine Respiratory Exam Present: CTA bilaterally - *Routine Cardiovascular Exam Present: RRR, murmur - *Routine Abdominal Exam Present: soft, normoactive bowel sounds. Absent: tenderness - *Routine Extremities Exam Absent: cyanosis, clubbing, edema - *Routine Skin Exam Present: warm, wounds. Absent: rash Comments: Open oozing large wound to left breast dressing reapplied and redness to right shoulder with small stage I. - *Routine Neurological Exam Patient is unresponsive but moans with turning or moving - Routine Psychiatric Exam Present: unable to assess Assessment and Plan (1) Metastatic cancer to bone Current visit: No Status: Acute Category: Medical Code(s): C79.51 - Secondary malignant neoplasm of bone (2) Breast cancer metastasized to bone Current visit: No Status: Chronic Qualifiers: Laterality: left Qualified Code(s): C50.912 - Malignant neoplasm of unspecified site of left female breast; C79.51 - Secondary malignant neoplasm of bone Category: Medical Code(s): C50.919 - Malignant neoplasm of unspecified site of unspecified female breast; C79.51 - Secondary malignant neoplasm of bone (3) HTN (hypertension), benign Current visit: No Status: Chronic Category: Medical Code(s): I10 - Essential (primary) hypertension - Assessment and plan all Dx Assessment and Plan for all problems:: Discussed patient with Dr. Berrios all orders per Dr. Yash Berrios to round later today
--- NOTE | 2019-09-02 19:41 | PC.NURSE ---
DURING SHIFT CHANGE, PAT PURI INFORMED THIS RN AND ARTURO RN OF PATIENT NOT BREATHING. THIS RN ALONG WITH ARTURO RN ASSESSED PATIENT AND FOUND PATIENT TO BE .
--- NOTE | 2019-09-02 23:27 | PC.NURSE ---
UPON BEGINNING OF SHIFT PRIOR TO RECEIVING REPORT ON PT, THIS RN WAS NOTIFIED BY THE DAY SHIFT TECH THAT THE PT WAS NO LONGER BREATHING. THIS RN ALONG WITH THE DAY SHIFT RN GEOFF, ENTERED THE ROOM TO ASSESS THE PT AT 190. PT WAS NOTED WITH ABSENT BREATH SOUNDS AND NO PULSE. SKIN NOTED DUSKY IN COLOR AND WARM TO TOUCH. NOTIFIED MD COSTUMER ASSISTANT, PATRICIA. SPOKE WITH PATRICIA AT 1928, INFORMED HIM THAT THE PT HAD . PATRICIA REQUESTED THE ER MD FOR PRONOUNCEMENT OF AT THIS TIME. NOTIFIED ER MD OF NEED FOR PRONOUNCEMENT. MD IVETH PRONOUNCED TOD AT 1938. FAMILY REMAINS AT BEDSIDE. HOSPICE NOTIFIED AT 1916 OF PT'S EXPIRATION. SPOKE WITH GARTH CHOI FROM HOSPICE AT 1922. SHE INFORMED THIS RN THAT SHE WAS LEAVING [place] AND WAS ON HER WAY TO CARE FOR PT DUE TO BEING RESPITE CARE AT [facility]. SENIOR RESEARCH ANALYST ARRIVED AT 2014. THIS RN PROPERLY COUNTED AND DISPOSED OF NARCOTICS WITH SENIOR RESEARCH ANALYST AT 2024. SENIOR RESEARCH ANALYST CONTACTED [facility] PER FAMILY REQUEST AT 2049. POST MORTEM CARE PROVIDED BY STAFF IN ROOM PER FAMILY REQUEST. ANTHONY CONTACTED AT 2054. SPOKE WITH ALLISON CALLES. PT RELEASED FROM [facility] FOR FURTHER CARE. . [facility] ARRIVED ON UNIT AT 2200, IN ROOM WITH FAMILY AT THIS TIME.
== END 2019-09-02 22:01 | disposition expired ==
PROVIDERS: Admitting Provider Emergency Medicine; PCP Nurse Practitioner Family; Visit Provider Emergency Medicine
DX: C50.912 Malignant neoplasm of unspecified site of left female breast (principal); C79.51 Secondary malignant neoplasm of bone; I10 Essential (primary) hypertension; C78.00 Secondary malignant neoplasm of unspecified lung; Z90.12 Acquired absence of left breast and nipple; Z79.899 Other long term (current) drug therapy; Z51.5 Encounter for palliative care
CPT/HCPCS: G0379; 94761; G0378